=== PATIENT | male | born 1985 | race Hispanic/Latino ===

== ENCOUNTER 2021-01-30 01:07 | Emergency (ER) | payer SELFPAY ==
[2021-01-30] MEDS ORDERED: Silver Nitrate Application 1 EACH ONE (01:52)
[2021-01-30] MEDS ORDERED: Boostrix 0.5 ML (Tdap) VIAL ONE (01:52)
[2021-01-30] MEDS ORDERED: Ibuprofen 800 MG TAB ONE (01:56)
== END 2021-01-30 01:50 | disposition home or self-care (01) ==
LOC: ERS 01:07
DX: S61.112A Laceration without foreign body of left thumb with damage to nail, initial encounter (principal); W26.8XXA Contact with other sharp object(s), not elsewhere classified, initial encounter; Z79.899 Other long term (current) drug therapy
CPT/HCPCS: 12001; 90471; 90715